=== PATIENT | female | born 1990 | race Caucasian/White ===

== ENCOUNTER 2024-06-16 14:50 | Outpatient (CLI) | payer OTHER, SELFPAY ==
[2024-06-16 15:15] LABS: HCT 44.5 % (36.0-46.0); HGB 14.7 g/dL (11.2-15.7); MCH 27.6 pg (27.0-33.0); MCV 84 fL (80-95); MPV 10.3 fL (8.0-11.0); Platelet Count 270 10^3/uL (130-400); RBC 5.33 10^6/uL (3.93-5.22); RDW 12.5 % (11.7-14.6); RDW-SD 37.7 fL; WBC 11.76 10^3/uL (4.4-10.8)
[2024-06-16 16:15] LABS: TSH (W/Ref FT4) 0.87 uIU/mL (0.36-3.74)
[2024-06-19 10:20] LABS: FSH 2.7 mIU/mL (See Note)
== END 2024-06-16 14:51 | disposition home or self-care (01) ==
LOC: LBO 14:52
PROVIDERS: Visit Provider Obstetrics & Gynecology
DX: N92.6 Irregular menstruation, unspecified (principal); N92.0 Excessive and frequent menstruation with regular cycle
CPT/HCPCS: 36415; 85027; 83001; 84443

== ENCOUNTER 2024-06-16 15:38 | Outpatient (REF) | payer OTHER, SELFPAY ==
[2024-06-19 12:06] LABS: Chlamydia Result Negative (Negative); GC Result Negative (Negative)
== END 2024-06-16 15:39 | disposition home or self-care (01) ==
LOC: LBN 15:38
PROVIDERS: Visit Provider Obstetrics & Gynecology
DX: N92.6 Irregular menstruation, unspecified (principal)
CPT/HCPCS: 87491; 87591